=== PATIENT | male | born 1975 | race Caucasian/White ===

== ENCOUNTER 2016-09-24 11:45 | Emergency (ER) | payer SELFPAY ==
[2016-09-24] MEDS ORDERED: LIDOCAINE 1% INJ-PF (10 MG/ML) 30 ML SDV INJ ONE (11:58)
--- NOTE | 2016-09-24 11:58 | ER Document Report ---
ED Hand/Wrist Injury - General Mode of Arrival: Ambulatory Information source: Patient TRAVEL OUTSIDE OF THE [place] IN LAST 30 DAYS: No - HPI Injury to: Index finger - right, Middle finger - right Onset: Yesterday - Refer to HPI notes <MARIA M POND - Last Filed: 09/24/16 12:09> <REGAN VASQUEZ - Last Filed: 09/24/16 14:46> - General Chief Complaint: Hand Injury Stated Complaint: FINGER INJURY Time Seen by Provider: 09/24/16 11:53 Notes: Patient is a 41-year-old male presented to the emergency department for injuries to his left second and third fingers. Patient states he slammed his fingers in a truck door by accident last night around 20:00. Patient states that he was trying to turn to talk to someone when he was shutting the door which caused his fingers to get stuck in the door. Patient states that he went home after this event and wrapped his fingers tightly to prevent bleeding. Patient states his fingers have continued to bleed throughout the night. Patient has no acute medical history and had a tetanus vaccination approximately 1 year ago. (MARIA M POND) Past Medical History - General Information source: Patient - Social History Smoking Status: Current Every Day Smoker Cigarette use (# per day): Yes - 1/2 ppd Frequency of alcohol use: Occasional Drug Abuse: None Family History: None Patient has suicidal ideation: No Patient has homicidal ideation: No GI Medical History: Reports: Other - pancreatitis Surgical Hx: Negative - Immunizations Hx Diphtheria, Pertussis, Tetanus Vaccination: Yes - about 1 year ago <MARIA M POND - Last Filed: 09/24/16 12:09> Review of Systems - Review of Systems Constitutional: No symptoms reported EENT: No symptoms reported Cardiovascular: No symptoms reported Respiratory: No symptoms reported Gastrointestinal: No symptoms reported Genitourinary: No symptoms reported Male Genitourinary: No symptoms reported Musculoskeletal: See HPI Skin: See HPI Hematologic/Lymphatic: No symptoms reported Neurological/Psychological: No symptoms reported -: Yes All other systems reviewed and negative <MARIA M POND - Last Filed: 09/24/16 12:09> Physical Exam <MARIA M POND - Last Filed: 09/24/16 12:09> <REGAN VASQUEZ - Last Filed: 09/24/16 14:46> - Notes Notes: GENERAL: Alert, interacts well. Mild distress. HEAD: Normocephalic, atraumatic. EYES: Appear normal. Pupils equal, round, and reactive to light. ENT: Moist mucus membranes, tongue midline. NECK: Full range of motion. Supple. Trachea midline. LUNGS: No respiratory distress. HEART: Regular rate. ABDOMEN: Appears normal, no distension. EXTREMITIES: Moves all 4 extremities spontaneously. Injuries to the right index and right middle fingers: The base of each nail bed on the fingers is elevated, lots of edema to the nail beds, dry and wet blood present to both areas. NEUROLOGICAL: Alert and oriented x3. Normal speech. No focal neurological deficits. GSC 15. PSYCH: Normal affect, normal mood. SKIN: Warm, dry, normal turgor. (MARIA M POND) Course <MARIA M POND - Last Filed: 09/24/16 12:09> - Diagnostic Test Radiology reviewed: Image reviewed, Reports reviewed - Left fingertips #2 and 3 show tuft fractures with soft tissues swelling <REGAN VASQUEZ - Last Filed: 09/24/16 14:46> - Re-evaluation Re-evalutation: 09/24/16 13:58 PROCEEDURE: The left dorsal hand was prepped with alcohol wipes in the space between the metacarpal heads. The second and third digits were anesthetized using 1% lidocaine introduced via a metacarpal nerve block. A total of 12 mL's of lidocaine was used. The hand and fingers was prepped with ChloraPrep. The fingertips were grossly swollen. The index finger nail was attached to the nail bed in the middle portion of the nail, with the base of the nail lifted up above the nail base. The cuticle and some skin was attached to the nail, was devitalized, this was resected. The area between the nail and nailbed was copiously irrigated via syringe and 27 -gauge needle with normal saline. The nail was sutured down with two 3-0 nylon sutures, attempting to place the nail base into the potential space. The third fingertip was more swollen than the second fingertip. The nail was mostly attached to the nailbed, however a significant thickness of the nail bed had been avulsed above the phalanx. The ulnar edge of the nail base is elevated creating a flap the nail base was elevated above the finger. The devitalized cuticle skin was resected. The area between the nail, nail base, and between the nail base and the deeper finger structures was copiously irrigated with normal saline via syringe and 27-gauge needle. The nail was sutured with 3-0 nylon sutures going through the nail, the nail bed and back up into the distal dorsal finger in an attempt to hold the nail base into the potential space. 2 sutures were used for this. A third suture was placed through the nail on the ulnar side into the side of the finger to close the open edge of the nail bed flap on that side. The fingers were then again cleaned and sterile dressings were applied. (REGAN VASQUEZ) Discharge <MARIA M POND - Last Filed: 09/24/16 12:09> <REGAN VASQUEZ - Last Filed: 09/24/16 14:46> - Discharge Clinical Impression: Open fracture of distal phalangeal tuft Crushing injury of finger of left hand Qualifiers: Encounter type: initial encounter Qualified Code(s): S67.22XA - Crushing injury of left hand, initial encounter Fingernail avulsion, partial Qualifiers: Encounter type: initial encounter Qualified Code(s): S61.309A - Unspecified open wound of unspecified finger with damage to nail, initial encounter Condition: Stable Disposition: HOME, SELF-CARE Additional Instructions: Keep the wounds dressed and clean. Take medication as prescribed. Elevate your hand all the time. Call Dr. Colin at [facility] tomorrow morning for an appointment in the next few days. RETURN TO THE EMERGENCY ROOM IF ANY NEW OR WORSENING SYMPTOMS. Prescriptions: Cephalexin Monohydrate [Keflex 500 mg Capsule] 500 mg PO QID #20 capsule Oxycodone HCl/Acetaminophen [Percocet 5-325 mg Tablet] 1 - 2 tab PO ASDIR PRN # 20 tablet PRN Reason: Referrals: [facility] [Provider Group] - 09/26/16 (call tomorrow for follow up appointment in the next 2-3 days) Scribe Attestation: 09/24/16 13:53 I personally performed the services described in the documentation, reviewed and edited the documentation which was dictated to the scribe in my presence, and it accurately records my words and actions. (REGAN VASQUEZ) Scribe Documentation - Scribe Written by Scribe:: Jef Lara, 09/24/2016 12:09 acting as scribe for :: Nellie <MARIA M POND - Last Filed: 09/24/16 12:09>
[2016-09-24] MEDS ORDERED: ONDANSETRON 4 MG TAB.RAPDIS PO ONE (11:59)
[2016-09-24] MEDS ORDERED: OXYCODONE-ACETAMINOPHEN 5-325 MG TABLET PO ONE ×2 (11:59→14:22)
[2016-09-24] MEDS ORDERED: CEPHALEXIN 500 MG CAPSULE PO ONE (12:14)
--- NOTE | 2016-09-24 12:56 | RADIOLOGY REPORT (SQ) ---
EXAM DESCRIPTION: FINGER LEFT COMPLETED DATE/TIME: 09/24/2016 12:20 pm REASON FOR STUDY: crush # 2,3 COMPARISON: None. NUMBER OF VIEWS: Three views. TECHNIQUE: AP, lateral, and oblique images acquired of the left 2nd and 3rd digits LIMITATIONS: None. FINDINGS: MINERALIZATION: Normal. BONES: Fractures are identified involving the distal ends of the distal phalanges of the 2nd and 3rd digits. No other evidence for fracture is seen. SOFT TISSUES: There is associated soft tissue injury. OTHER: No other significant finding. IMPRESSION: Fractures involving the distal ends of the distal phalanges of the 2nd and 3rd digits wi th associated soft tissue injury. COMMENT: SITE OF TRAUMA/COMPLAINT MARKED/STAMP COMPLETED: No TECHNICAL DOCUMENTATION: JOB ID: [id number] [employer]- All Rights Reserved
[2016-09-24 15:02] VITALS: BP 128/82
== END 2016-09-24 14:47 | disposition home or self-care (01) ==
LOC: ER 11:45
PROC: 0HQQXZZ Repair Finger Nail, External Approach (ICD-10-PCS; principal; 2016-09-24)
DX: S62.631B Displaced fracture of distal phalanx of left index finger, initial encounter for open fracture (principal); S62.633B Displaced fracture of distal phalanx of left middle finger, initial encounter for open fracture; W23.0XXA Caught, crushed, jammed, or pinched between moving objects, initial encounter; Y93.89 Activity, other specified; F17.210 Nicotine dependence, cigarettes, uncomplicated
CPT/HCPCS: 99283; 73140; 11760 ×2; S0119; J3490

== ENCOUNTER 2016-09-26 13:23 | Emergency (ER) | payer SELFPAY ==
[2016-09-26] MEDS ORDERED: OXYCODONE-ACETAMINOPHEN 5-325 MG TABLET PO ONE (13:51)
--- NOTE | 2016-09-26 14:23 | ER Document Report ---
HPI - HPI Patient complains to provider of: wound recheck Onset: Other - 2 days ago Onset/Duration: Better Quality of pain: Achy Pain Level: 5 Context: Patient states that he crushed his left second and third fingers in a house door 2 days ago. Patient was supposed to follow-up with orthopedic doctor but states that they would not see him as he did not have 400 hours. Patient states that swelling seems to have gone down but he still has significant pain to both fingers. Associated Symptoms: Other - Left second and third finger pain. denies: Fever Exacerbated by: Movement Relieved by: Denies Similar symptoms previously: No Recently seen / treated by doctor: Yes - ROS ROS below otherwise negative: Yes Systems Reviewed and Negative: Yes All other systems reviewed and negative - CONSTITUTIONAL Constitutional: DENIES: Fever, Chills - NEURO Neurology: DENIES: Weakness - CARDIOVASCULAR Cardiovascular: DENIES: Chest pain - GASTROINTESTINAL Gastrointestinal: DENIES: Nausea - MUSCULOSKELETAL Musculoskeletal: REPORTS: Extremity pain - DERM Skin Color: [place] Skin Problems: Laceration Past Medical History - General Information source: Patient - Social History Smoking Status: Never Smoker Chew tobacco use (# tins/day): No Frequency of alcohol use: None Drug Abuse: None Lives with: Family Family History: None Patient has suicidal ideation: No Patient has homicidal ideation: No Renal/ Medical History: Denies: Hx Peritoneal Dialysis GI Medical History: Reports: Other - pancreatitis Past Surgical History: Reports: Hx Orthopedic Surgery - Lumbar Fusion, Hx Pancreatic Surgery - 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 IN LAST 30 DAYS: No - HEENT HEENT: Atraumatic, Normocephalic - NECK Neck: Normal Inspection, Supple - RESPIRATORY Respiratory: Breath Sounds Normal, No Respiratory Distress O2 Sat by Pulse Oximetry: 100 - CARDIOVASCULAR Cardiovascular: Regular Rate, Regular Rhythm Pulses: Normal: Radial - MUSCULOSKELETAL/EXTREMETIES Musculoskeletal/Extremeties: MAEW, Tender Notes: left 2,3 distal finger tips - NEURO Level of Consciousness: Awake, Alert, Appropriate Motor/Sensory: No Motor Deficit - DERM Integumentary: Warm, Dry Notes: pt with healing wounds to left second and third fingertip. Sutures intact anchoring nails in place. Patient with granulation tissue noted to the wound bed of left second and third finger. No surrounding erythema. No significant swelling. No concern for cellulitis or tenosynovitis Course - Re-evaluation Re-evalutation: 09/26/16 14:[address] Garces regarding patient management. Recommends discharge planning patient. Spoke with community planner Caden Ricardo who will attempt to set up outpatient orthopedic follow-up. Advised that he will need to follow-up with orthopedic as previously planned. Patient advised that for any worsening he should return to the emergency department and if he is unable to follow-up with orthopedic doctor that he should return in 8 days for suture removal. 09/26/16 14:21 The patient has been informed that they may have pre-hypertension or hypertension based on a blood pressure reading in the emergency department. I recommend that patient call the primary care provider listed on their discharge instructions or a physician of their choice by this week to arrange follow-up for further evaluation of possible pre-hypertension her hypertension. - Vital Signs Vital signs: Temp Pulse Resp BP Pulse Ox 98.1 F 68 14 148/100 H 100 09/26/16 13:28 09/26/16 13:28 09/26/16 13:28 09/26/16 13:28 09/26/16 13:28 - Diagnostic Test Radiology reviewed: Reports reviewed - Previous ER visit Discharge - Discharge Clinical Impression: Open fracture of distal phalangeal tuft, Elevated blood pressure reading Crushing injury of finger of left hand Qualifiers: Encounter type: initial encounter Qualified Code(s): S67.22XA - Crushing injury of left hand, initial encounter Condition: Stable Disposition: HOME, SELF-CARE Instructions: Open Finger Tuft Fracture ([facility]), Dressing Instructions for Open Wounds ([facility]), Oral Narcotic Medication ([facility]) Additional Instructions: Return immediately for any new or worsening symptoms Followup with your primary care provider, call tomorrow to make a followup appointment Follow-up with orthopedic doctor as previously instructed Daily wound care Your blood pressure was elevated today, recheck with primary doctor to have this reevaluated Prescriptions: Oxycodone HCl/Acetaminophen [Percocet 5-325 mg Tablet] 1 - 2 tab PO ASDIR PRN # 15 tablet PRN Reason: Forms: Elevated Blood Pressure, Return to Work Referrals: [facility] [Provider Group] - Follow up as needed [facility] [Provider Group] - Follow up as needed
[2016-09-26 14:45] VITALS: BP 146/89
== END 2016-09-26 14:41 | disposition home or self-care (01) ==
LOC: ER 13:23
DX: S67.22XA Crushing injury of left hand, initial encounter (principal); R03.0 Elevated blood-pressure reading, without diagnosis of hypertension; S62.639B Displaced fracture of distal phalanx of unspecified finger, initial encounter for open fracture; W23.0XXA Caught, crushed, jammed, or pinched between moving objects, initial encounter
CPT/HCPCS: 99282

== ENCOUNTER 2016-10-02 15:32 | Emergency (ER) | payer SELFPAY ==
--- NOTE | 2016-10-02 17:14 | ER Document Report ---
HPI - HPI Pain Level: 5 Notes: Patient is a 41-year-old male presents the ED for recheck and suturing to the left second and third distal digit. Patient was evaluated on 24 September for crush injury. Sutures were placed to help keep the nail down after avulsion injury. Patient was then followed up on 26 September for recheck. He had no acute concerns at that time. Patient has been on Keflex for the first 5 days. Patient was instructed that he needs a follow-up with orthopedics, but he has not been able to do so because he cannot afford it and he does not have insurance right now. Our licensed clinical social worker did meet with him on 26 September visit, but patient states that he still cannot go see orthopedics at this time. Patient was instructed that he needed to have the sutures removed 10 days after his procedure which would put him at 04 October. Patient states that he continues to have pain to the injury sites on both digits. Patient states that he does notice an occasional purulent discharge. Patient states that the pressure has been increasing. He has not noticed any red streaks, abscess. He has been using some over-the- counter meds with minimal relief. Patient has been soaking his fingers in Epsom salts soaks and rinsing with sterile water regularly. No other concerns or complaints. Denies any drug allergies. Denies any illicit drug use. Denies any significant past medical history otherwise. Denies any fever, headache, chest pain, palpitations, syncope, cough, wheeze, shortness of breath , abdominal pain, nausea/5/diarrhea, dysuria, or rash otherwise. - ROS Notes: REVIEW OF SYSTEMS: CONSTITUTIONAL : Denies fever, chills, or sweats. Denies recent illness. EENT: Denies eye, ear, throat, or mouth pain or symptoms. Denies nasal or sinus congestion or discharge. Denies throat, tongue, or mouth swelling or difficulty swallowing. CARDIOVASCULAR: Denies chest pain. Denies palpitations or racing or irregular heart beat. Denies ankle edema. RESPIRATORY: Denies cough, cold, or chest congestion. Denies shortness of breath, difficulty breathing, or wheezing. GASTROINTESTINAL: Denies abdominal pain or distention. Denies nausea, vomiting , or diarrhea. Denies blood in vomitus, stools, or per rectum. Denies black, tarry stools. Denies constipation. GENITOURINARY: Denies difficulty urinating, painful urination, burning, frequency, blood in urine, or discharge. MUSCULOSKELETAL: see hpi SKIN: see hpi NEUROLOGICAL: Denies confusion or altered mental status. Denies passing out or loss of consciousness. Denies dizziness or lightheadedness. Denies headache. Denies weakness or paralysis or loss of use of either side. Denies problems with gait or speech. Denies sensory loss, numbness, or tingling. ALL OTHER SYSTEMS REVIEWED AND NEGATIVE. Dictation was performed using [employer] voice recognition software - DERM Skin Color: Normal Past Medical History - Social History Smoking Status: Unknown if Ever Smoked Family History: None Patient has suicidal ideation: No Patient has homicidal ideation: No Renal/ Medical History: Denies: Hx Peritoneal Dialysis Past Surgical History: Reports: Hx Orthopedic Surgery - Lumbar Fusion, Hx Pancreatic Surgery - /3 pancreas removed - Immunizations Hx Diphtheria, Pertussis, Tetanus Vaccination: Yes - about 1 year ago Vertical Provider Document - CONSTITUTIONAL Agree With Documented VS: Yes Notes: PHYSICAL EXAMINATION: GENERAL: Well-appearing, well-nourished and in no acute distress. LUNGS: Breath sounds clear to auscultation bilaterally and equal. No wheezes rales or rhonchi. HEART: Regular rate and rhythm without murmurs, rubs, gallops. Musculoskeletal: Lt hand/fingers: FROM to passive/active. Strength 5+/5. + tenderness to injury site. + mild erythema around the nails. No obvious purulent discharge noted. sutures appear compromised in that they are no longer doing the job of keeping the nail near the nail fold. No streaks, abscess, or prox lymphadenopathy. N/V intact distal. Extremities: No cyanosis, clubbing, or edema b/l. Peripheral pulses 2+. Capillary refill less than 3 seconds. NEUROLOGICAL: Normal sensory, motor exams PSYCH: Normal mood, normal affect. SKIN: Warm, Dry, normal turgor, no rashes or lesions noted.--see MSK exam. - INFECTION CONTROL TRAVEL OUTSIDE OF THE [place] IN LAST 30 DAYS: No - RESPIRATORY O2 Sat by Pulse Oximetry: 100 Course - Re-evaluation Re-evalutation: 10/02/16 17:51 Patient is an afebrile, well-hydrated, 41-year-old male presents to the ED for suture removal and wound recheck of his finger status post injury [address] Reynolds also evaluated the patient. Vitals are stable. PE otherwise unremarkable. Sutures were removed at this time. Fingers were washed with soap and water and rinsed with sterile saline with bacitracin applied. Wound instructions reviewed. [facility]ed [facility] in [place] along with [facility]opedic walk[facility] services [facility] that the patient may look into if he cannot afford a formal visit at the orthopedic clinic here. Patient state that they are going to work on trying to get into 1 of those places for further evaluation. Advised that the nails may come off, and that the nails may not grow back normally at this point. To help against infection, I will place him on doxycycline 100 mg p.o. twice daily for 10 more days. Recheck/establish with a PCM this week. Return to the ED with any worsening/ concerning symptoms otherwise as reviewed in discharge. Patient is in agreement. - Vital Signs Vital signs: Temp Pulse Resp BP Pulse Ox 98.1 F 62 20 147/98 H 100 10/02/16 15:47 10/02/16 15:47 10/02/16 15:47 10/02/16 15:47 10/02/16 15:47 Discharge - Discharge Clinical Impression: Finger injury Qualifiers: Encounter type: subsequent encounter Laterality: left Qualified Code(s): S69.92XD - Unspecified injury of left wrist, hand and finger(s), subsequent encounter Condition: Stable Disposition: HOME, SELF-CARE Additional Instructions: Keep hands clean Wash with soap and water May apply bacitracin take antibiotics as directed Use sunscreen when out in the sun while taking doxycycline as it will make you more sensitive to sunlight F/u: with orthopedics as directed this week (consider [facility] care in [place] along with Orthopedic walk in clinic in [place]/[facility]) F/u-Establish with PCM this week Return to the ED with any development of fever, headache, chest pain, palpitations, syncope, cough, shortness of breath, wheeze, abdominal pain, nausea/vomiting/diarrhea, abscess, purulent discharge, red streaks, worsening pain, or other worsening/concerning symptoms as needed. Prescriptions: Doxycycline Hyclate 100 mg PO BID #20 capsule Forms: Elevated Blood Pressure Referrals: [facility] ([facility] [Provider Group] - Follow up in 3-5 days
[2016-10-02] MEDS ORDERED: HYDROCODONE/ACETAMINOPHEN 5-325 MG 6 TAB/DSPK PO PRN (17:24)
[2016-10-02 18:11] VITALS: BP 163/96
== END 2016-10-02 18:11 | disposition home or self-care (01) ==
LOC: ER 15:32
DX: S61.311D Laceration without foreign body of left index finger with damage to nail, subsequent encounter (principal); S61.313D Laceration without foreign body of left middle finger with damage to nail, subsequent encounter; X58.XXXD Exposure to other specified factors, subsequent encounter
CPT/HCPCS: 99281

== ENCOUNTER 2017-01-30 23:07 | Emergency (ER) | payer SELFPAY ==
[2017-01-30] MEDS ORDERED: MORPHINE SULFATE IR 15 MG TABLET PO ONE (23:36)
[2017-01-30] MEDS ORDERED: IBUPROFEN 600 MG TABLET PO ONE (23:36)
[2017-01-30] MEDS ORDERED: LIDOCAINE 5% (700 MG) TRANSDERMAL ADH..PATCH TP ONE (23:36)
--- NOTE | 2017-01-30 23:39 | ER Document Report ---
ED General - General Chief Complaint: Back Pain Stated Complaint: BACK PAIN Time Seen by Provider: 01/30/17 23:27 Notes: Patient is a 42-year-old male with a past medical history of a prior lumbar spinal fusion and chronic residual low back pain who presents after falling approximately 4-5 feet off of a ladder. Patient states that he landed onto his right side and right low back and since that time has had a constant, dull, throbbing pain to the low back that shoots into his right lower extremity. Describes radiating pain right lower extremity as a severe, burning, shooting pain. He states movement worsens his pain. He has been able to ambulate since the accident but does note that he did have an episode of urinary incontinence. He has not had any urinary retention. He denies any weakness or numbness in the lower extremities. Denies any head or neck trauma. He has not tried anything to improve his pain. TRAVEL OUTSIDE OF THE [place] IN LAST 30 DAYS: No - Related Data Allergies/Adverse Reactions: No Known Allergies Allergy (Verified 01/19/17 08:53) Past Medical History - General Information source: Patient - Social History Smoking Status: Current Every Day Smoker Frequency of alcohol use: None Drug Abuse: None Lives with: Family Family History: Reviewed & Not Pertinent Renal/ Medical History: Denies: Hx Peritoneal Dialysis Past Surgical History: Reports: Hx Abdominal Surgery - hernia repair, Hx Orthopedic Surgery - Lumbar Fusion, Hx Pancreatic Surgery - 1/3 pancreas removed - Immunizations Hx Diphtheria, Pertussis, Tetanus Vaccination: Yes - about 1 year ago Review of Systems - Review of Systems Notes: Constitutional: Negative for fever. Eyes: Negative for visual changes. ENT: Negative for facial injury Cardiovascular: Negative for chest injury. Respiratory: Negative for shortness of breath. Gastrointestinal: Negative for abdominal injury. Genitourinary: Negative for genital injury Musculoskeletal: Positive for back injury. Skin: Negative for laceration/abrasions. Neurological: Negative for head injury. Physical Exam - Vital signs Vitals: Temp Pulse Resp BP Pulse Ox 97.8 F 92 18 118/87 H 100 01/30/17 23:13 01/30/17 23:13 01/30/17 23:13 01/30/17 23:13 01/30/17 23:13 Interpretation: Normal Notes: PHYSICAL EXAMINATION: GENERAL: Appears to be in pain but no acute distress HEAD: Atraumatic, normocephalic. EYES: Pupils equal round and reactive to light, extraocular movements intact, sclera anicteric, conjunctiva are normal. ENT: nares patent, no oral pharyngeal trauma. No hemotympanum, no Hernandez's sign , no raccoon eyes. NECK: No midline cervical spine tenderness. Patient able to move their head to 45 bilaterally without any discomfort. LUNGS: Breath sounds clear to auscultation bilaterally and equal. No wheezes rales or rhonchi. HEART: Regular rate and rhythm without murmurs. CHEST WALL: No ecchymosis over the chest wall. ABDOMEN: Soft, nontender, normoactive bowel sounds. No guarding, no rebound. No abdominal bruising EXTREMITIES: Normal range of motion, no pitting or edema. No long bone deformities. BACK: No midline spinal tenderness, step-offs, or deformities. Lumbar fusion surgical incision noted. NEUROLOGICAL: 5 out of 5 strength both distally and proximally bilateral lower extremities. 2+ patellar reflexes bilaterally. No clonus. Sensation grossly intact in the bilateral lower extremities. Patient is able to ambulate without difficulty. PSYCH: Normal mood, normal affect. SKIN: Warm, Dry, normal turgor, no rashes or lesions noted. Course - Re-evaluation Re-evalutation: 01/30/17 23:37 Presentation of patient with acute worsening of his chronic low back pain after he apparently fell approximately 4-5 feet off of a ladder onto his right low back and hip. Patient does have a history of hardware placement in the back so x-rays were obtained to ensure that he has not had any hardware displacement and this is noted to be normal. The right hip x-ray is also unremarkable. Exam is without point tenderness over vertebral bodies, pulsatile abdominal mass , and patient has symmetric and intact lower extremity strength, sensation, and reflexes without clonus. 2+ symmetric medial malleolar and dorsalis pedis pulses. Patient is able to ambulate without difficulty on both heels and toes. Based on history and physical, I have a very low suspicion of a concerning etiology of pain including epidural compression syndrome, spinal infection, transverse myelitis, malignancy, abdominal aortic aneurysm, renal colic, acute lower extremity claudication, neurogenic claudication, ankylosing spondylitis, or other intra-abdominal process. Patient did not strike his head or neck and has no evidence of head or neck trauma on examination. Pain is been controlled here in the emergency department and he will be discharged with a limited number of pain medications. [place] controlled substance database was checked and verified that he has no recent narcotic prescriptions. At this time will discharge with return precautions and follow-up recommendations. Verbal discharge instructions given a the bedside and opportunity for questions given. Medication warnings reviewed. Patient is in agreement with this plan and has verbalized understanding of return precautions and the need for primary care follow-up in the next 24-72 hours. - Vital Signs Vital signs: Temp Pulse Resp BP Pulse Ox 97.8 F 92 18 118/87 H 100 01/30/17 23:13 01/30/17 23:13 01/30/17 23:13 01/30/17 23:13 01/30/17 23:13 - Diagnostic Test Radiology reviewed: Image reviewed, Reports reviewed Radiology results interpreted by me: 01/31/17 00:50 Right hip x-ray: No acute fracture or dislocation Discharge - Discharge Clinical Impression: Fall Qualifiers: Encounter type: initial encounter Qualified Code(s): W19.XXXA - Unspecified fall, initial encounter Low back pain Qualifiers: Chronicity: acute Back pain laterality: bilateral Sciatica presence: with sciatica Sciatica laterality: sciatica of right side Qualified Code(s): M54.41 - Lumbago with sciatica, right side Condition: Good Disposition: HOME, SELF-CARE Additional Instructions: You have been seen in the Emergency Department (ED) today for back pain. Your workup and exam have not shown any acute abnormalities and you are likely suffering from muscle strain or possible problems with your discs, but there is no treatment that will fix your symptoms at this time. For your pain: Take ibuprofen 600 mg and acetaminophen 1000 mg every 6 hours together as needed for pain. If this does not control your pain you may take 15 mg of oral morphine every 4 hours as needed. Please be very careful about using the oral morphine and only use this for severe pain. You should also purchase a local lidocaine cream such as "aspercreme with lidocaine" and use per bottle instructions to the affected area. Apply heat to the area as often as you are able. Continue to keep active and avoid prolonged periods of bed rest. Please follow up with your doctor as soon as possible regarding today's ED visit and your back pain. Return to the ED for worsening back pain, fever, weakness or numbness of either leg, or if you develop either (1) an inability to urinate or have bowel movements, or (2) loss of your ability to control your bathroom functions (if you start having "accidents"), or if you develop other new symptoms that concern you.concern you. Prescriptions: Morphine Sulfate [Morphine Ir 15 mg Tablet] 15 mg PO Q4HP PRN #12 tablet PRN Reason: Forms: Return to Work
--- NOTE | 2017-01-31 00:33 | RADIOLOGY REPORT (SQ) ---
EXAM DESCRIPTION: HIP RIGHT AP/LATERAL CLINICAL HISTORY: fall COMPARISON: None. FINDINGS: Single view of the pelvis and frog-leg lateral views of the right hip. Posterior gilberto and screw fixation at L5/S1. No acute fractures identified. Joint space preserved. No abnormalities of the pelvis soft tissues. IMPRESSION: No acute fracture or dislocation.
--- NOTE | 2017-01-31 00:34 | RADIOLOGY REPORT (SQ) ---
EXAM DESCRIPTION: L SPINE WHOLE CLINICAL HISTORY: fall and pain. COMPARISON: None. FINDINGS: Frontal, lateral, and bilateral oblique views of the lumbar spine. 5 nonrib-bearing lumbar vertebrae. Posterior gilberto and screw fixation with laminectomy at L5/S1. Vertebral body height preserved. No subluxation. Mild loss of intervertebral disc height throughout the lumbar spine with endplate spondylosis. No abnormalities of the abdominal soft tissues. IMPRESSION: 1. No acute abnormality of the lumbar spine by plain film criteria.
[2017-01-31] MEDS ORDERED: ONDANSETRON 4 MG TAB.RAPDIS ONE (01:45)
[2017-01-31] MEDS ORDERED: ONDANSETRON 4 MG TAB.RAPDIS PO ONE (01:46)
[2017-01-31 06:54] VITALS: BP 141/87
== END 2017-01-31 06:54 | disposition home or self-care (01) ==
LOC: ER 23:07
DX: M54.41 Lumbago with sciatica, right side (principal); W11.XXXA Fall on and from ladder, initial encounter; G89.29 Other chronic pain; Z98.1 Arthrodesis status; F17.200 Nicotine dependence, unspecified, uncomplicated
CPT/HCPCS: 99283; 73502; 72110; S0119

== ENCOUNTER 2017-02-06 11:45 | Emergency (ER) | payer SELFPAY ==
--- NOTE | 2017-02-06 12:33 | ER Document Report ---
ED General - General Mode of Arrival: Ambulatory Information source: Patient TRAVEL OUTSIDE OF THE [place] IN LAST 30 DAYS: No <ALLI GHOSH - Last Filed: 02/06/17 15:14> <PÉREZ GRAY - Last Filed: 02/06/17 17:25> - General Chief Complaint: ETOH Abuse Stated Complaint: BACK PAIN Time Seen by Provider: 02/06/17 12:06 Notes: Patient is a 42 year old male presenting to the emergency department via EMS after being found on a park bench intoxicated. Patient states that he recently fell from a ladder and states that he still has back pain. Patient states that he has been drinking 2 gallons of liquor over the last 3 days to ease his back pain. Patient has a history of pancreatitis. (ALLI GHOSH) - Related Data Allergies/Adverse Reactions: No Known Allergies Allergy (Verified 01/19/17 08:53) Past Medical History - General Information source: Patient - Social History Smoking Status: Current Every Day Smoker Cigarette use (# per day): Yes Chew tobacco use (# tins/day): No Smoking Education Provided: Yes - >4 mins Frequency of alcohol use: Heavy Family History: Reviewed & Not Pertinent Past Surgical History: Reports: Hx Abdominal Surgery - hernia repair, Hx Orthopedic Surgery - Lumbar Fusion, Hx Pancreatic Surgery - 1/3 pancreas removed - Immunizations Hx Diphtheria, Pertussis, Tetanus Vaccination: Yes - about 1 year ago <ALLI GHOSH - Last Filed: 02/06/17 15:14> Review of Systems - Review of Systems -: Yes ROS unobtainable due to patient's medical condition Constitutional: No symptoms reported EENT: No symptoms reported Cardiovascular: No symptoms reported Respiratory: No symptoms reported Gastrointestinal: No symptoms reported Genitourinary: No symptoms reported Male Genitourinary: No symptoms reported Musculoskeletal: See HPI, Back pain Skin: No symptoms reported Hematologic/Lymphatic: No symptoms reported Neurological/Psychological: No symptoms reported -: Yes All other systems reviewed and negative <ALLI GHOSH - Last Filed: 02/06/17 15:14> - Review of Systems -: Yes ROS unobtainable due to patient's medical condition - Correction the scribe clicked this in error <PÉREZ GRAY - Last Filed: 02/06/17 17:25> Physical Exam <ALLI GHOSH - Last Filed: 02/06/17 15:14> <PÉREZ GRAY - Last Filed: 02/06/17 17:25> - Vital signs Vitals: Pulse Ox 100 02/06/17 11:59 - Notes Notes: GENERAL: Moderately intoxicated. HEAD: Normocephalic, atraumatic. EYES: Pupils dilated, round, and reactive to light. Extraocular movements intact. ENT: Oral mucosa moist, tongue midline. NECK: Full range of motion. Supple. Trachea midline. LUNGS: Clear to auscultation bilaterally, no expiratory wheezes, rales, or rhonchi. No respiratory distress. Dry cough. HEART: Regular rate and rhythm. No murmurs, gallops, or rubs. ABDOMEN: Soft, non-tender. Non-distended. Bowel sounds present in all 4 quadrants. EXTREMITIES: Moves all 4 extremities spontaneously. No edema, radial and dorsalis pedis pulses 2/4 bilaterally. No cyanosis. 5/5 muscle strength. Negative straight leg raise bilaterally. After assisted ambulation, patient was able to ambulate to the door and ask for a urinal with no ataxia. NEUROLOGICAL: Alert and oriented x3. Speech slightly slurred. Biceps and patellar DTRs 2+ bilaterally. PSYCH: Calm until examining, in which patient became dramatic. SKIN: Warm, dry, normal turgor. No rashes or lesions noted. BACK: On initial PEx, patient yelled and complained of pain when palpating every vertebrae from T1 to sacrum. When examined the second time, patient states he could not feel any palpations. (ALLI GHOSH) Course - Laboratory Result Diagrams: 02/06/17 12:38 02/06/17 12:38 <ALLI GHOSH - Last Filed: 02/06/17 15:14> - Laboratory Result Diagrams: 02/06/17 12:38 02/06/17 12:38 <PÉREZ GRAY - Last Filed: 02/06/17 17:25> - Re-evaluation Re-evalutation: 02/06/17 15:30 CBC unremarkable, CMP actually has slight hypernatremia 147.7, no renal failure , no signs of dehydration, ALT and alkaline phosphatase both mildly elevated as is expected with his significant drinking history, lipase normal, urinalysis unremarkable, no signs of dehydration, no ketones, serum alcohol level is 487. Despite this remarkably elevated blood alcohol level the patient is able to talk to me with only mildly slurred speech. We did do an x-ray of his back given his somewhat confusing exam at the beginning where initially he complained of pain when I touched every single thoracic and lumbar vertebrae but then he told me he could not feel me touching him at all anywhere across his back. X-ray reveals no fracture and no malalignment of the hardware. Patient was allowed to sleep for approximately 3 hours and then he was rechecked, patient was ambulated carefully with 2 assistants and he was able to ambulate, we then told the patient that we would watch him until he was able to ambulate on his own, 2 minutes later he stood up walked out of bed walk to the door of his room and demanded a urinal. Patient was then able to turn around and walk back to his bed without any difficulty or ataxia. At this time the patient is medically cleared, still shows only mild signs of intoxication despite his elevated alcohol level. Patient will be discharged. Of note the [place] [employer] does have 2 officers here waiting to take him into a custody for an outstanding warrant. Patient will continue to be in the presence of other people for the next 24 hours. They are aware that the patient he is at risk for alcohol withdrawal should he not have anything to drink for the next 24 hours. Patient does not currently have any signs of alcohol withdrawal. 02/06/17 17:23 This is a late entry however just prior to the patient's discharge the precinct police captain in the room did ask me to reexamine the patient, patient showed me a large hematoma to the posterior lateral aspect of the right thigh with a small superficial abrasion on it, no signs of secondary bacterial infection, this appears to be a result of the fall that he took 5 days ago. No fluctuance, no discharge. No evidence of infection. Patient continues to be stable for discharge. (PÉREZ GRAY) - Vital Signs Vital signs: Temp Pulse Resp BP Pulse Ox 13 119/86 H 100 02/06/17 15:29 02/06/17 15:29 02/06/17 15:29 - Laboratory Laboratory results interpreted by me: 02/06/17 02/06/17 12:38 12:38 MCV 104 H MCH 36.4 H Sodium 147.7 H Carbon Dioxide 33 H BUN 5 L ALT 87 H Alkaline Phosphatase 255 H Serum Alcohol 487 H* Discharge <ALLI GHOSH - Last Filed: 02/06/17 15:14> <PÉREZ GRAY - Last Filed: 02/06/17 17:25> - Discharge Clinical Impression: Tobacco abuse, Tobacco abuse counseling, Acute exacerbation of chronic low back pain, Alcohol abuse Condition: Stable Disposition: HOME, SELF-CARE Forms: Smoking Cessation Education Scribe Attestation: 02/06/17 17:25 I personally performed the services described in the documentation, reviewed and edited the documentation which was dictated to the scribe in my presence, and it accurately records my words and actions. (PÉREZ GRAY) Scribe Documentation - Scribe Written by Jef:: Jef Anthony, 02/06/2017 12:57 acting as scribe for :: Kamari <ALLI GHOSH - Last Filed: 02/06/17 15:14>
[2017-02-06 12:51] LABS: ABSOLUTE EOSINOPHILS # (AUTO) 0.1 10^3/uL (0.0-0.6); ABSOLUTE LYMPHOCYTES (AUTO) 1.4 10^3/uL (0.5-4.7); ABSOLUTE MONOCYTES (AUTO) 0.4 10^3/uL (0.1-1.4); ABSOLUTE NEUT (AUTO) 2.7 10^3/uL (1.7-8.2); BASOPHILS % (AUTO) 0.9 % (0-2); EOSINOPHILS % (AUTO) 2.8 % (0-6); HEMATOCRIT 46.1 % (37.9-51.0); HEMOGLOBIN 16.1 g/dL (13.5-17.0); HGB HCT DIFFERENCE 2.2; LYMPHOCYTES % (AUTO) 30.3 % (13-45); MEAN CORPUSCULAR HEMOGLOBIN 36.4 pg (27.0-33.4); MEAN CORPUSCULAR HGB CONC 34.9 g/dL (32.0-36.0); MEAN CORPUSCULAR VOLUME 104 fl (80-97); MONOCYTES % (AUTO) 8.2 % (3-13); RED BLOOD COUNT 4.41 10^6/uL (4.35-5.55); RED CELL DISTRIBUTION WIDTH 13.4 % (11.5-14.0); SEGMENTED NEUTROPHILS % (AUTO) 57.8 % (42-78); WHITE BLOOD COUNT 4.6 10^3/uL (4.0-10.5)
[2017-02-06 13:09] LABS: ALANINE AMINOTRANSFERASE 87 U/L (21-72); ALBUMIN 4.2 g/dL (3.5-5.0); ALKALINE PHOSPHATASE 255 U/L (38-126); ANION GAP 16 (5-19); ASPARTATE AMINO TRANSFERASE 40 U/L (17-59); BILIRUBIN,DIRECT 0.4 mg/dL (0.0-0.4); BILIRUBIN,TOTAL 0.4 mg/dL (0.2-1.3); BLOOD UREA NITROGEN 5 mg/dL (7-20); CALCIUM 8.7 mg/dL (8.4-10.2); CARBON DIOXIDE 33 mmol/L (22-30); CHLORIDE 99 mmol/L (98-107); CREATININE RESULT 0.61 mg/dL (0.52-1.25); GLUCOSE 94 mg/dL (75-110); LIPASE 178.4 U/L (23-300); POTASSIUM 3.7 mmol/L (3.6-5.0); SODIUM 147.7 mmol/L (137-145); TOTAL PROTEIN 6.4 g/dL (6.3-8.2)
[2017-02-06 13:10] LABS: APPEARANCE,URINE CLEAR; BILIRUBIN,URINE NEGATIVE (NEGATIVE); GLUCOSE, URINE NEGATIVE (NEGATIVE); KETONES,URINE NEGATIVE (NEGATIVE); LEUKOCYTE ESTERASE,URINE NEGATIVE (NEGATIVE); NITRITE,URINE NEGATIVE (NEGATIVE); PROTEIN,URINE NEGATIVE (NEGATIVE); URINE SPECIFIC GRAVITY 1.002; UROBILINOGEN,URINE NEGATIVE mg/dL (<2.0)
--- NOTE | 2017-02-06 13:18 | RADIOLOGY REPORT (SQ) ---
EXAM DESCRIPTION: L SPINE WHOLE COMPLETED DATE/TIME: 02/06/2017 1:09 pm REASON FOR STUDY: fall, back pain, intoxicated COMPARISON: None. NUMBER OF VIEWS: 01/31/2017 TECHNIQUE: AP, lateral, oblique, and sacral radiographic images acquired of the lumbar spine. LIMITATIONS: None. FINDINGS: MINERALIZATION: Normal. SEGMENTATION: Normal. No transitional anatomy. ALIGNMENT: Normal. VERTEBRAE: Maintained height. No fracture or worrisome bone lesion. DISCS: There is narrowing of the disc spaces from L2-S1. This is most prominent at L4-5 and L5- S1. POSTERIOR ELEMENTS: Pedicles and facets are intact. No pars defect or posterior arch defects. HARDWARE: Posterior rods are present L5-S1 with screws through the pedicles. PARASPINAL SOFT TISSUES: Normal. PELVIS: Intact as visualized. No fractures or worrisome bone lesions. SI joints intact. OTHER: There is no significant interval change. IMPRESSION: No acute process in the lumbar spine. Findings as described. TECHNICAL DOCUMENTATION: JOB ID: [id number] [employer]- All Rights Reserved
[2017-02-06 13:21] LABS: ALCOHOL 487 mg/dL (NONE DETECTED)
[2017-02-06 15:30] VITALS: BP 119/86
== END 2017-02-06 15:45 | disposition home or self-care (01) ==
LOC: ER 11:45
DX: M54.5 Low back pain (principal); G89.29 Other chronic pain; F10.920 Alcohol use, unspecified with intoxication, uncomplicated; W11.XXXA Fall on and from ladder, initial encounter; F17.210 Nicotine dependence, cigarettes, uncomplicated
CPT/HCPCS: 36415; 72110; 80053; 80307; 81001; 83690; 85025; 99284; 99406